=== PATIENT | male | born 1960 | race Caucasian/White ===

== ENCOUNTER 2019-05-23 19:52 | Observation (INO) | payer SELFPAY ==
[~2019-05-23] VITALS: Ht 180.3 cm; Wt 88.6 kg
--- NOTE | 2019-05-23 19:54 | NUR ---
PT WHEELED STRAIGHT BACK TO ROOM 9 AND EKG OBTAINED.
[2019-05-23] MEDS ORDERED: METFORMIN500 MG PO (20:16)
[2019-05-23] MEDS ORDERED: LISINOP/HCTZ1 TA1 PO (20:16)
[2019-05-23 20:23] LABS: HEMATOCRIT 49.9 % (39.0-50.0); HEMOGLOBIN 16.3 g/dl (14.0-18.0); IMMATURE GRANULOCYTES 0.4 % (0.0-5.0); MEAN CELL VOLUME 90.6 fL CALC (80.0-100.0); MEAN CORPUSCULAR HGB 29.6 pG CALC (26.0-32.0); MEAN CORPUSCULAR HGB CONC 32.7 g/L CALC (32.0-36.0); NEUT# 11.78 thou/uL (1.82-7.42); RED BLOOD COUNT 5.51 mill/uL (4.70-6.10); RED CELL DISTRI WIDTH 12.3 % (11.5-15.5)
[2019-05-23 20:44] LABS: ALBUMIN 4.5 g/dL (3.2-5.0); ALKALINE PHOSPHATASE 105 u/l (38-126); ANION GAP 16 (6-22 (CALC)); BILIRUBIN, TOTAL 0.4 mg/dL (0.0-1.4); BUN 17 mg/dL (9-20); BUN/CREATININE RATIO 22 (12-20 (CALC)); CARBON DIOXIDE 30 mmol/l (22-30); CHLORIDE 102 mmol/l (95-108); CREATININE 0.8 mg/dL (0.7-1.3); GFR > 60 ML/MIN (>=60 (CALC)); GFR FOR AFR.AMER. > 60 ML/MIN (>=60 (CALC)); POTASSIUM 4.2 mmol/l (3.5-5.1); SGOT/AST 22 u/l (17-59); SODIUM 144 mmol/l (137-146); TOTAL PROTEIN 8.1 g/dL (6.3-8.2)
--- NOTE | 2019-05-23 20:54 | NUR ---
NO C/O AT THIS TIME. RESP. EVEN AND UNLABORED.
[2019-05-23 20:55] LABS: MYOGLOBIN 26 ng/mL (0 - 121)
--- NOTE | 2019-05-23 21:12 | NUR ---
IV ABT. STARTED PER MD ORDER.
--- NOTE | 2019-05-23 22:30 | NUR ---
MD IN ROOM TO DISCUSS CLINICAL FINDINGS WITH PT. AND ALSO MAkE HIM AWARE OF ADMISSION, VERBALIZED UNDERSTANDING.
--- NOTE | 2019-05-23 22:35 | NUR ---
Admission Note Report Given to: SANDRA THOMAS Transported by: Wheelchair X Stretcher Transported with: X Nurse Transporter X Patent IV O2 X Animal Daycare Provider
--- NOTE | 2019-05-23 22:41 | NUR ---
PT. TAKEN TO IN FLOOR VIA STRETCHER, NO C/O.
[2019-05-23 23:00] VITALS: BP 155/77
--- NOTE | 2019-05-23 23:00 | NUR ---
PATIENT ADMITTED FROM ER VIA STRETCHER WITH ER STAFF IN ATTENDANCE. PATIENT IS ABLE TO AMB TO THE STANDING SCALE AND THEN TO BED. PATIENT BEING ADMITTED FOR COPD EXACERBATION. PATIENT IS AWAKE ALERT AN ORIENTEDX3. PATIENT IS HIGH ANXIETY AT THIS TIME. PATIENT WITH TELE MONITOR IN PLACE. PATIENT STATES THAT HE LIVES ALONE AND HAS HAD SOB AND PRODUCTIVBE FOR SOME TIME. BROUGHT HIMSELF TO THE ER TONIGHT. IV SITE TO LEFT AC INTACT AND NS BOLUS WAS GIVEN ORDERED. AZITHRO HUNG ORDERED. PATIENT WITH WHEEZING THOUGHOUT. HR-REG. ABD SOFT. ACTIVE BS NOTED. LAST BM WAS TODAY. NO DIFFICULTY WITH URINATION. O2 VIA NASAL CANNULA APPLIED FOR O2 SATS IN LOW 90'S. PATIENT DENIES ANY PAIN AT THIS TIME. PATIENT PROVIDED WITH SANDWICH AND DRINK. PATIENT ORIENTED TO ROOM AND SURROUNDINGS. INSTRUCTED ON USE OF NURSE CALL LIGHT SYSTEM, TV REMOTEAND PHONE. SAFETY PRECAUTIONS REINFORCED. CALL LIGHT IN REACH. WILL CONT TO MONITOR.
--- NOTE | 2019-05-23 23:55 | NUR ---
SPOKE TO DR. YANG IN ER REGUARDING LACTIC ACID-LAST ONE AT 2200 WAS 2.4. NO FURTHER ORDERS FOR LACTIC ACID TONIGHT AND NO FURTHER IVF BOLUS OTHER THAN 1000CC BOLUS ALREADY ORDERED. WILL CONT TO MONITOR.
[2019-05-24 00:09] VITALS: BP 112/59
--- NOTE | 2019-05-24 01:40 | NUR ---
PATIENT RESTIN GIN BED WITH O2 VIA NASAL CANNULA AT 2LPM. IV PUMP FOUND TURNED OFF-PATIENT STATES THAT HE TURNED IT OFF HIMSELF WHEN IT STARTED BEEPING. EXPLAINED TO THE PATIENT THAT HE NEEDS TO USE CALL LIGHT IF AND WHEN THE IV PUMP SHOULD GO OFF SO STAFF CAN CHECK THE PUMP. REINFORCED TEACHING WITH PATIENT ON USING THE NURSE CALL LIGHT. STATES THAT HE COULDN'T FIND THE NURSE CALL LIGHT. PLACED WITHIN THE PATIENT REACH. IVF HUNG AND NS PATENT AND INFUSING VIA LEFT AC SITE AT 125CC/HR. SAFETY PRECAUTIONS REINFORCED. WILL CONT TO MONITOR.
[2019-05-24 03:20] VITALS: BP 121/61
--- NOTE | 2019-05-24 03:22 | NUR ---
PATIENT RESTING IN BED-PATIENT VOIDED 250CC OF FOUL SMELLING PAPA URINE. URINE SPEC OBTAINED AND SENT TO LAB. TELE MONITORING IN PLACE. IVF PATENT AND INFUSING VIA LEFT AC SITE. O2 VIA NASAL CANNULA IN PLACE. SAFETY PRECAUTIONS REINFORCED. CALL LIGHT IN REACH. WILL CONT TO MONITOR.
--- NOTE | 2019-05-24 04:47 | NUR ---
APPEARS SLEEPING AT THIS TIME POSITIONED ON HIS SIDE WITH O2 VIA NASAL CANNULA IN PLACE. TELE MONITOR IN PLACE. IVF PATENT AND INFUSING AT 125VCC/HR VIA LEFT AC SITE. SITE REMAINS HELATHY AT THIS TIME. CALL LIGHT IN REACH. WILL CONT TO MONITOR
[2019-05-24 05:08] LABS: URINE BILIRUBIN - DIPSTICK NEGATIVE (NEGATIVE); URINE BLOOD DIPSTICK LARGE (NEGATIVE); URINE COLOR YELLOW; URINE GLUCOSE - DIPSTICK >=1000 mg/dL (NEGATIVE); URINE KETONE TRACE mg/dL (NEGATIVE); URINE LEUK ESTERASE NEGATIVE (NEGATIVE); URINE NITRITE - DIPSTICK NEGATIVE (Negative); URINE PH 5.5 (4.5-8.0); URINE PROTEIN - DIPSTICK 30 mg/dL (NEG-TRACE); URINE SPECIFIC GRAVITY 1.025; URINE UROBILINOGEN - DIPSTICK 0.2 E.U./dL (0.2)
[2019-05-24 05:10] LABS: URINE EPITHELIAL CELLS FEW EPI/hpf (0-FEW); URINE RBC 25-50 RBC/hpf (0-5)
--- NOTE | 2019-05-24 07:05 | NUR ---
REPORT RECEIVED FROM WILLIAM FLORES;PT RESTING IN SUPINE POSITION;INTRODUCED SELF TO PT AND POC DISCUSSED;RESPIRATIONS EVEN AND UNLABORED ON O2 @ 2L VIA NC;PT DENIES ANY CURRENT PAIN OR DISCOMFORTS;TELE MONITORING IN PLACE;IV FLUIDS INFUSING TO LAC WITH EASE;PT ENCOURAGED TO CALL FOR ASSISTANCE IF NEEDED;FALL PRECAUTIONS IN PLACE WITH BED IN THE LOWEST POSITION AND CALL LIGHT IN REACH;WILL CONTINUE TO MONITOR
[2019-05-24 07:58] VITALS: BP 145/91
--- NOTE | 2019-05-24 08:00 | NUR ---
PT RESTING IN SEMI FOWLERS POSITION WATCHING TV,A&O X3;VS OBTAINED AND ASSESSMENT COMPLETED;PT DENIES ANY CURRENT PAIN OR DISCOMFORTS,PAIN SCALE AND REPORTING EDUCATED;RESPIRATIONS EVEN AND UNLABORED ON O2 @ 2L VIA NC,WHEEZY LUNG SOUNDS NOTED;NON-PRODUCTIVE COUGH AT THIS TIME;ABDOMEN DISTENDED/SOFT ON PALPATION AND ACTIVE IN ALL 4 QUADRANTS;STRONG PEDAL PULSES;SKIN INTACT;TELE MONITORING IN PLACE;#18G TO LAC INFUSING NS @ 125ML/HR,SITE APPEARS HEALTHY;ACCUCHECK 193, PT COVERED WITH SLIDING SCALE NOVOLOG PER ORDER;PT DENIES ANY ADDITIONAL NEEDS AT THIS TIME AND IS ENCOURAGED TO CALL FOR ASSISTANCE IF NEEDED;FALL PRECAUTIONS IN PLACE WITH CALL LIGHT IN REACH;WILL CONTINUE TO MONITOR
--- NOTE | 2019-05-24 09:44 | NUR ---
RT AT BEDSIDE ADMINISTERING BREATHING TREATMENT
--- NOTE | 2019-05-24 11:30 | NUR ---
PT RESTING IN SEMI FOWLERS POSITION;RESPIRATIONS REMAIN EVEN AND UNLABORED ON O2 @ 2L VIA NC;PT DENIES ANY CURRENT PAIN OR DISCOMFORTS;IV FLUIDS INFUSING TO LAC WITH EASE;TELE MONITORING IN PLACE;ACCUCHECK 182, PT COVERED WITH SLIDING SCALE NOVOLOG;ASSESSMENT REMAINS UNCHANGED AT THIS TIME;PT ENCOURAGED TO CALL FOR ASSISTANCE IF NEEDED;CALL LIGHT IN REACH;WILL CONTINUE TO MONITOR
--- NOTE | 2019-05-24 12:20 | NUR ---
LAB AT BEDSIDE
--- NOTE | 2019-05-24 13:00 | NUR ---
AT BEDSIDE DISCUSSING POC.
--- NOTE | 2019-05-24 15:30 | NUR ---
PT RUNNING CONSISTANTLY ST ON THE TELEMETRY MONITORING. NOTIFIED AND NEW ORDER FOR EKG OBTAINED AT THIS TIME.PT ASYMPTOMATIC TO ELEVATED HEART RATE.
--- NOTE | 2019-05-24 15:38 | NUR ---
RT AT BEDSIDE OBTAINED EKG.
[2019-05-24 15:50] VITALS: BP 120/67
--- NOTE | 2019-05-24 15:50 | NUR ---
PT RESTING IN SEMI FOWLERS POSITION;RESPIRATIONS EVEN AND UNLABORED ON RA;PT DENIES ANY CURRENT PAIN OR DISCOMFORTS;IV FLUIDS INFUSING TO LAC WITH EASE;EKG RESULTED IN NSR 99;TELE MONITORING IN PLACE;PT DENIES ANY ADDITIONAL NEEDS AT THIS TIME AND IS ENCOURAGED TO CALL FOR ASSISTANCE IF NEEDED;CALL LIGHT IN REACH;WILL CONTINUE TO MONITOR
--- NOTE | 2019-05-24 18:30 | NUR ---
LAB AT BEDSIDE
--- NOTE | 2019-05-24 19:00 | NUR ---
REPORT RECEIVED FROM OLIVIA REILLY. PT RESTING IN BED. NO S/S OF DISTRESS AT THIS TIME. SAFETY PRECAUTIONS IN PLACE. WILL CONTINUE TO MONITOR.
[2019-05-24 20:14] VITALS: BP 122/63
--- NOTE | 2019-05-24 22:19 | NUR ---
PT RESTING IN BED ALERT AND ORIENTED. RESPIRATIONS EVEN AND UNLABORED ON O2 @ 2L VIA NC. LUNGS SOUND DIMINISHED. PEDAL PULSES STRONG. PT DENIES ANY PAIN OR DISCOMFORT AT THIS TIME. TELE IN PLACE. CALL CHAVES WITHIN REACH. WILL CONTINUE TO MONITOR.
[2019-05-25 00:33] VITALS: BP 136/68
--- NOTE | 2019-05-25 02:39 | NUR ---
PT RANG CALL LIGHT WITH NO VERBAL RESPONE. PT FOUND STANDING NEXT TO BED, AGGITATED. UPON ENTERING ROOM PT BEGAN SHOUTING THAT GUN STOCK MAKER NEEDED TO REMOVE ALL THESE CORDS AND WIRES, GUN STOCK MAKER ATTEMPTED TO EDUCATED PT ON INTERNATIONAL SALES MANAGER, O2, AND IV FLUIDS. PT BEGAN TO SHOUT AGAIN AND REMOVED INTERNATIONAL SALES MANAGER AT THIS TIME. GUN STOCK MAKER INFORMED PT THAT HIS NURSE WOULD BE NOTIFIED AND CLOSED THE DOOR TO ROOM. PT NURSE AND NURSING ATV MECHANIC NOTIFIED AT THIS TIME.
--- NOTE | 2019-05-25 02:50 | NUR ---
DYNAMO TENDER NOTIFIED THAT PT IS AGGITATED PULLING OFF TELE. PT REMOVED TELE AND IS REFUSING TO WEAR IT. PT EDUCATED ON NEED OF TELE MONIOTORING. PT STILL REFUSING. NOTIFIED NO NEW ORDERS AT THIS TIME. SAFETY PRECAUTIONS IN PLACE. WILL CONTINUE TO MONITOR
--- NOTE | 2019-05-25 03:15 | NUR ---
DR YANG AT BEDSIDE TO SEE PT. PT STILL REFUSING TELE. SAFETY PRECAUTIONS IN PLACE. WILL CONTINUE TO MONITOR.
[2019-05-25 04:11] VITALS: BP 125/70
--- NOTE | 2019-05-25 08:00 | NUR ---
PT RESTING IN BED WATCHING T.V. ATE 100% OF BREAKFAST. RESP EVEN AND UNLABORED. O2 SAT 94% ON R/A. LUNGS REVEAL DIMINISHED BREATH SOUNDS IN ALL LOBES. ABD SOFT WITH BOWEL SOUNDS PRESENT. NO LOWER EXT EDEMA NOTED. PEDAL PULSE PALPATED BILAT. IV SITE PATENT IN LEFT A.C. NO REDNESS OR SWELLING AT SITE. IVF NSS AT 125CC/HR. PT OFFERS NO COMPLAINTS. PT REFUSES TO WEAR TELE MONITOR AND MONITOR WAS REMOVED BY PT ON FACULTY HEAD . FREQUENT ROUNDS MADE. CALL CHAVES WITHIN REACH.
[2019-05-25 08:02] VITALS: BP 134/75
[2019-05-25 08:09] VITALS: BP 134/75
--- NOTE | 2019-05-25 09:43 | NUR ---
PT HAD SHOWER. PT ACCIDENTALLY PULLED OUT IV . CATH IS INTACT. PT DOES NOT WANT IV RESTARTED AT THIS TIME DUE TO POSSIBLE DISCHARGE PER PT. PT WOULD LIKE TO WAIT FOR M.D AND SPEAK TO HIM ABOUT POSSIBLE D/C BEFORE IV RESTARTED.
--- NOTE | 2019-05-25 10:46 | NUR ---
RESTING IN BED WATCHING T.V. OFFERS NO COMPLAINTS. FREQUENT ROUNDS MADE. CALL CHAVES WITHIN REACH.
--- NOTE | 2019-05-25 12:30 | NUR ---
RESTING IN BED WATCHING T.V. RESP EVEN AND UNLABORED. OFFERS NO COMPLAINTS. CALL CHAVES WITHIN REACH.
--- NOTE | 2019-05-25 12:50 | NUR ---
DR PIERRE IN TO SPEAK WITH PT AND REVIEWED DISCHARGE INSTRUCTIONS AND DISCHARGE MEDS. PT AWARE TO FOLLOW UP WITH [facility] IN ONE WEEK.
[2019-05-25] MEDS ORDERED: PREDNISONE10 MG PO (12:53)
[2019-05-25] MEDS ORDERED: ZITHROMAX250 MG PO (12:53)
--- NOTE | 2019-05-25 13:30 | NUR ---
REVIEWED ALL DISCHARGE INSTRUCTION WITH PT. PT NOT RECEPTIVE TO TEACHING. PT IS AGITATED. PT GIVEN SCRIPTS FOR ZITHROMAX AND PREDNISONE TAPER. COMMERCIAL CREDIT LEAD DID TEACHING WITH PT REGARDING ALBUTEROL AND SPIRIVA INHALERS. PT DOES NOT WANT TO DO A RETURN DEMONSTRATION. PT AGITATED AND CANT BE BOTHERED LISTENING TO INSTRCTIONS. TEACHING DONE REGARDING PREDNISONE TAPER. PT INSTRUCTION TO CALL PCP FOR FOLLOW UP APPT. INSTEAD OF LISTENING TO DISCHARGE PT TOOK A PHONE CALL. NO IV SITE. PT TO BE DISCHARGED HOME. PT IS IN STABLE CONDITION.
--- NOTE | 2019-05-25 13:50 | NUR ---
PT OFFERED WHEELCHAIR FOR DISCHARGE. PT VERY AGITATED AND STATES MY CAR IS PARKED IN THE LOT. I DONT NEED ANY WHEELCHAIR. ASKED PT IF THERE IS ANYTHING THIS READY MIX TRUCK DRIVER CAN DO AND PT STATES IM MAD OVER THESE INHALERS. OFFERED AGAIN TO DO TEACING REGARDING INHALERS BUT PT REFUSES.
--- NOTE | 2019-05-25 14:12 | NUR ---
PT DISCHARGED AMBULATORY DUE TO REFUSING WHEELCHAIR WITH HIS BELONGINGS. PT IS IN STABLE CONDITION.
== END 2019-05-25 14:12 | disposition home or self-care (01) | DRG 192 ==
LOC: ED 19:52 → ED-I 20:58 → ED 21:37 → MS2 21:38
PROVIDERS: Emergency Medicine; ADMIT Internal Medicine; ATTEND Internal Medicine
DX: J44.1 Chronic obstructive pulmonary disease with (acute) exacerbation (principal); I10 Essential (primary) hypertension; E11.9 Type 2 diabetes mellitus without complications; F17.200 Nicotine dependence, unspecified, uncomplicated; Z79.84 Long term (current) use of oral hypoglycemic drugs
CPT/HCPCS: G0378

== ENCOUNTER 2022-04-16 19:30 | Emergency (ER) | payer SELFPAY ==
[~2022-04-16] VITALS: Ht 180.3 cm; Wt 81.8 kg
[2022-04-16] VITALS (7 sets, daily range): BP systolic 129–158; BP diastolic 76–98
[~2022-04-16 19:30] MED LIST: LISINOP/HCTZ1 TA1 PO; METFORMIN500 MG PO; PREDNISONE10 MG PO; ZITHROMAX250 MG PO
[2022-04-16] MEDS ORDERED: NORVASC10 M1 PO (19:40)
[2022-04-16 20:29] LABS: ALBUMIN 4.4 g/dL (3.2-5.0); ALKALINE PHOSPHATASE 77 u/l (38-126); ANION GAP 15 (6-22 (CALC)); BILIRUBIN, TOTAL 0.3 mg/dL (0.0-1.4); BUN 15 mg/dL (8-23); BUN/CREATININE RATIO 20 (12-20 (CALC)); CARBON DIOXIDE 28 mmol/l (22-30); CHLORIDE 103 mmol/l (95-108); CREATININE 0.7 mg/dL (0.7-1.3); GFR FOR AFR.AMER. > 60 ML/MIN (>=60 (CALC)); GFR OTHER RACES > 60 ML/MIN (>=60 (CALC)); SGOT/AST 21 u/l (19-48); SODIUM 142 mmol/l (137-146); TOTAL PROTEIN 7.2 g/dL (6.3-8.2)
[2022-04-16 20:39] LABS: HEMATOCRIT 36.9 % (39.0-50.0); HEMOGLOBIN 12.3 g/dl (14.0-18.0); IMMATURE GRANULOCYTES 0.4 % (0.0-5.0); MEAN CELL VOLUME 91.1 fL CALC (80.0-100.0); MEAN CORPUSCULAR HGB 30.4 pG CALC (26.0-32.0); MEAN CORPUSCULAR HGB CONC 33.3 g/dL CAL (32.0-36.0); NEUT# 3.78 thou/uL (1.82-7.42); RED BLOOD COUNT 4.05 mill/uL (4.70-6.10); RED CELL DISTRI WIDTH 12.8 % (11.5-15.5)
[2022-04-16 20:40] LABS: MYOGLOBIN 28 ng/mL (0 - 121)
[2022-04-16] MEDS ORDERED: ALBUTEROL SUL0.083 % IN (20:59)
[2022-04-16] MEDS ORDERED: PREDNISONE50 MG PO (20:59)
[2022-04-16] MEDS ORDERED: PRED FORTE1 % OS (20:59)
[2022-04-16] MEDS ORDERED: VALTREX1 GM PO (20:59)
[2022-04-17] MEDS ORDERED: LORTAB5 PO (21:46)
== END 2022-04-16 21:31 | disposition home or self-care (01) | DRG 191 ==
LOC: ED 19:30
PROVIDERS: Family Medicine
DX: J44.1 Chronic obstructive pulmonary disease with (acute) exacerbation (principal); B02.31 Zoster conjunctivitis; B00.1 Herpesviral vesicular dermatitis; E11.9 Type 2 diabetes mellitus without complications; F17.200 Nicotine dependence, unspecified, uncomplicated; Z79.84 Long term (current) use of oral hypoglycemic drugs; Z20.822 Contact with and (suspected) exposure to COVID-19

== ENCOUNTER 2022-04-17 20:29 | Emergency (ER) | payer SELFPAY ==
[~2022-04-17] VITALS: Ht 180.3 cm; Wt 79.5 kg
[~2022-04-17 20:29] MED LIST changes: +ALBUTEROL SUL0.083 % IN; +NORVASC10 M1 PO; +PRED FORTE1 % OS; +PREDNISONE50 MG PO; +VALTREX1 GM PO
[2022-04-17 21:10] VITALS: BP 151/73
[2022-04-17 21:15] VITALS: BP 144/78
[2022-04-17 21:30] VITALS: BP 143/77
[2022-04-17 21:45] VITALS: BP 143/77; BP 152/87
[2022-04-17] MEDS ORDERED: LORTAB5 PO (21:46)
== END 2022-04-17 22:00 | disposition home or self-care (01) | DRG 156 ==
LOC: ED 20:29
DX: B00.1 Herpesviral vesicular dermatitis (principal); E11.9 Type 2 diabetes mellitus without complications; J44.9 Chronic obstructive pulmonary disease, unspecified; Z79.84 Long term (current) use of oral hypoglycemic drugs